=== PATIENT | male | born 1980 | race Caucasian/White ===

== ENCOUNTER 2017-01-28 20:09 | Emergency (ER) | payer MEDICAID, OTHER ==
--- NOTE | 2017-01-28 20:25 | ERNOTE ---
Chest Pain/Cardiac HPI Date of Service: 01/28/17 Chief Complaint: Chest Pain Time Seen by Provider: 01/28/17 20:17 Source: patient Immunizations: IMMUNIZATION HX Immunizations Up to Date Yes History of Influenza Vaccine No Hx Pneumococcal Vaccination No Allergies/Adverse Reactions: Allergies No Known Allergies Allergy (Verified 01/28/17 20:18) Home Medications: HOME MEDICATIONS Ibuprofen [Motrin] 800 mg PO TID PRN 04/02/16 [Last Taken 01/28/17 17:30] Omeprazole [Prilosec] 40 mg PO DAILY 04/02/16 [Last Taken Unknown] Narrative: This is a 36-year-old gentleman with no history of tobacco abuse, no family history of early cardiac disease, no diabetes, no high blood pressure, no high cholesterol who comes to the emergency department with the sudden onset of left- sided chest pain which started while he was at work at approximately 4:30. He works as an automotive tire technician. He was carrying things around. The pain is primarily left anterior and lateral superior chest wall pain. He says it feels like it is deeper than pulled muscles. He says "I am an athlete or played sports, and this does not feel like a pulled muscle." Next The patient says that the pain started out at up to over 3 and was not associated with other symptoms. The pain waxed and waned but never went away completely. He says that over the course of this evening it is gotten worse. It is now 7 out of 10. He says it is associated with some nausea no vomiting it is associated with diaphoresis. The patient states he has never had similar symptoms in the past. Nothing makes it worse or makes it better. He says that briefly he felt some palpitations and that is really what worried him the most and caused him to come to the ER. Review of Systems - Review of Systems Constitutional: Present: no symptoms reported EYE: Present: no symptoms reported ENT: Present: no symptoms reported Respiratory: Present: no symptoms reported Cardiology: Present: See HPI, chest pain Gastrointestinal/Abdominal: Present: no symptoms reported Genitourinary: Present: no symptoms reported Musculoskeletal: Present: no symptoms reported Skin: Present: no symptoms reported Neurological: Present: no symptoms reported Endocrine: Present: no symptoms reported Hematologic/Lymphatic: Present: no symptoms reported Psych: Present: no symptoms reported All Other Systems: All systems neg except as marked - Patient's Past Medical History Patient History - Medical: No pertinent hx Patient History - Cardiac/Respiratory: Hyperlipidemia Patient History - Cancer: No Hx of Cancer Patient History - Surgical Procedures: Appendectomy, Colon Resection Patient History - Other: None - Social History Living Situations: home Psych History: No pertinent hx Smoking Status: Former smoker Alcohol Use: none Drug Use: none - Immunizations Immunizations Up to Date: Yes Hx Pneumococcal Vaccination: No History of Influenza Vaccine: No Physical Exam - Physical Exam General Appearance: Present: wd/wn, alert, no apparent distress Head Exam: Present: normal inspection, no evidence of injury Eye Exam: Normal inspection: bilateral, PERRL: bilateral, EOMI: bilateral Ears, Nose, Throat: Present: normal ENT inspection, normal pharynx Neck: Present: normal inspection, nontender Respiratory: Present: no respiratory distress, normal breath sounds, no accessory muscle use, chest nontender, lungs clear Cardiovascular/Chest: Present: regular rate, rhythm, no murmur, normal peripheral pulses Gastrointestinal/Abdominal: Present: normal bowel sounds, nontender, nondistended, soft, no organomegaly Back Exam: Present: normal inspection, normal range of motion, no CVA tenderness , no vertebral tenderness Extremity Exam: Present: normal inspection, non-tender, normal range of motion, no edema Neurological Exam: Present: alert, oriented, normal mood/affect, no motor/ sensory deficits Skin Exam: Present: normal color, warm/dry Lymphatic Exam: Present: no adenopathy ED Progress - Results and Orders Patient's Lab Results:: I have reviewed the patient's lab results. - Vital Signs Patient's Vital Signs:: I have reviewed the patient's vital signs. Vital Signs: Vital Signs 01/28/17 20:11 Temperature 37.0 C Pulse Rate 71 Respiratory 18 Rate Blood Pressure 130/83 O2 Sat by Pulse 97 Oximetry - EKG EKG: NSR EKG Comments: Normal sinus rhythm normal axis normal intervals no ST segment deviation no acute ischemic changes - X-Ray X-Ray #1 X-Ray: chest Interpretation: Interp. by me X-ray Comments: No acute disease. - Progress/Reassessment Chief Complaint: Chest Pain Progress:: Improved Plan - Plan Plan: I discussed with the patient the fact that his cardiac tests are normal. I see no direct definite cause for his symptoms. We discussed that this does not give him a completely clean bill of health. He is aware he needs to follow-up with his family doctor and consider an outpatient stress test. He is aware if he develops new concerning symptoms he needs to return to the emergency department. The patient had symptoms which started at 4:30. If the patient had chest pain due to acute coronary syndrome, the high sensitivity troponins should've shown up positive within an hour or 2, but certainly by 4 hours which is when we did them. I made him aware that no test is completely perfect, he is aware if he develops new symptoms he should return to the ER. Departure - Departure Clinical Impression: Chest pain Disposition: Home self-care Condition: Stable Instructions: Nonspecific Chest Pain, [id number] Additional Instructions: As we have discussed, the tests and studies done here in the emergency department are normal. This does not mean that there is nothing wrong with you , only that whatever is causing her symptoms is not something we can identify. I suspect that when he wakes up in the morning if symptoms will have resolved, and we will not have any idea what caused the symptoms. The other possibility is that he will develop new symptoms which help localize a direction to do further testing in. If you develop any new or concerning symptoms overnight I want you to return to the emergency department immediately. Call your family doctor, told her seen in the ER for chest pain, and asked to be worked into the schedule. With your family history may want to consider an outpatient stress test. Return for new or worrisome symptoms. I recommend for anyone who has a family history of heart disease to take a single aspirin every day.
[2017-01-28 20:37] LABS: Hematocrit 42.6 % (42.0-52.0); Hemoglobin 14.8 gm/dL (13.5-18.0); Mean Cell Volume 89.7 fl (78-100); Mean Corpuscular Hemoglobin 31.2 pg (27-31); Mean Corpuscular Hgb Conc 34.7 g/dl (32-36); Mean Platelet Volume 9.4 fl (6.0-9.5); Neutrophil # 3.3 K/mm3 (1.3-6.0); Neutrophil % 50.4 % (42-75.0); Platelet Count 252 K/mm3 (150-450); Red Blood Count 4.75 M/mm3 (4.7-6.0); Red Cell Distribution Width 12.2 % (11.5-14.0); White Blood Count 6.6 K/mm3 (4.0-10.5)
[2017-01-28 20:54] LABS: ALT 21 U/L (19-67); AST 14 U/L (0-48); Albumin * 4.1 gm/dl (3.4-5.0); Alkaline Phosphatase * 86 U/L (50-170); Anion Gap 16.2 mmol/L (6.8-13.8); BUN/Creatinine Ratio 14.9 (9.0-21.6); Bilirubin, Total 0.4 mg/dL (0.0-1.1); Blood Urea Nitrogen 15 mg/dL (6-23); Ca. Corrected For Albumin 8.2 mg/dL (8.4-10.2); Calcium * 8.6 mg/dL (7.9-10.9); Carbon Dioxide 24.3 mmol/L (24-32.6); Chloride 105 mmol/L (97-106); Glucose * 116 mg/dL (70-110); Potassium 3.5 mmol/L (3.4-4.6); Sodium 142 mmol/L (132-142); Total Protein 7.4 gm/dL (6.2-8.2)
[2017-01-28 20:55] LABS: Troponin I Less than 0.017 ng/ml (0.00-0.10)
[2017-01-28 21:02] LABS: Urine Bilirubin Negative (NEGATIVE); Urine Blood Negative /ul (NEGATIVE); Urine Ketone Negative (NEGATIVE); Urine Nitrite Negative (NEGATIVE); Urine Protein Negative (NEGATIVE); Urine Urobilinogen Normal (NORMAL)
[2017-01-28 21:05] LABS: Urine Appearance Clear; Urine Color Pale Yellow
[2017-01-28 21:09] LABS: Urine Bacteria TRACE; Urine RBC None Seen /hpf (0-5); Urine WBC None Seen /hpf (0-5)
[2017-01-28 22:10] VITALS: BP 113/69
== END 2017-01-28 21:35 | disposition home or self-care (01) ==
LOC: ER 20:09
DX: R07.9 Chest pain, unspecified (principal); E78.5 Hyperlipidemia, unspecified